=== PATIENT | female | born 1970 ===

== ENCOUNTER 2016-07-05 14:25 | Inpatient (IN) | payer OTHER ==
[2016-07-05 16:25] VITALS: BMI 25.7
[2016-07-05] MEDS ORDERED: MAGNESIUM HYDROX 2400MG/30ML ORAL SUSPENSION 30 ML CUP PO PRN (18:25)
[2016-07-05] MEDS ORDERED: MENTHOL/PHENOL 1 EACH UD MM PRN (18:25)
[2016-07-05] MEDS ORDERED: NICOTINE POLACRILEX 2 MG GUM BUC PRN (18:25)
[2016-07-05] MEDS ORDERED: ACETAMINOPHEN 325 MG TABLET (FP) PO PRN (18:25)
[2016-07-05] MEDS ORDERED: LOPERAMIDE HCL 2 MG CAPSULE PO PRN (18:25)
[2016-07-05] MEDS ORDERED: P-EPHED 60MG/TRIPROLIDI 2.5MG TABLET PO PRN (18:25)
[2016-07-05] MEDS ORDERED: guaiFENesin/D-METHORPHAN HB 10 ML UNIT-DOSE CUPS PO PRN (18:25)
[2016-07-05] MEDS ORDERED: MAGNESIUM CITRATE 300 ML BOTTLE PO PRN (18:25)
[2016-07-05] MEDS ORDERED: MAG HYDROX/AL HYDROX/SIMETH 30 ML UNIT-DOSE CUP PO PRN (18:25)
--- NOTE | 2016-07-05 18:25 | HP ---
Admission ROS S - [facility] Chief Complaint: I WANT TO GO TO REHAB Allergies/Adverse Reactions: Allergies Allergy/AdvReac Type Severity Reaction Status Date / Time No Known Allergies Allergy Verified 07/05/16 18:21 History of Present Illness: 45 YEARS OLD FEMALE WITH LONG HISTORY OF OPIATE NICOTINE DEPENDENCE DENIES MEDICAL ISSUE DENIES MENTAL ILLNESS IS ADMITTED TO REHAB Exam Limitations: No Limitations - Ebola screening Have you traveled outside of the country in the last 21 days: No Have you had contact with anyone from an Ebola affected area: No Have you been sick,other than usual withdrawal symptoms: No Do you have a fever: No - Review of Systems Constitutional: Weight Stable EENT: reports: Other (NEEDED EYE GLASSES) Respiratory: reports: No Symptoms reported Cardiac: reports: No Symptoms Reported GI: reports: No Symptoms Reported : reports: No Symptoms Reported Musculoskeletal: reports: No Symptoms Reported Integumentary: reports: No Symptoms Reported Neuro: reports: No Symptoms reported Endocrine: reports: No Symptoms Reported Hematology: reports: No Symptoms Reported Psychiatric: reports: No Sypmtoms Reported, Judgement Intact, Mood/Affect Appropiate, Orientated x3 Other Systems: Reviewed and Negative Patient History - Patient Medical History Hx Anemia: No Hx Asthma: No Hx Chronic Obstructive Pulmonary Disease (COPD): No Hx Cancer: No Hx Cardiac Disorders: No Hx Congestive Heart Failure: No Hx Hypertension: No Hx Hypercholesterolemia: No Hx Pacemaker: No HX Cerebrovascular Accident: No Hx Seizures: No Hx Dementia: No Hx Diabetes: No Hx Gastrointestinal Disorders: No Hx Liver Disease: No Hx Genitourinary Disorders: No Hx Sexually Transmitted Disorders: No Hx Renal Disease (ESRD): No Hx Thyroid Disease: No Hx Human Immunodeficiency Virus (HIV): No Hx Hepatitis C: No Hx Depression: No Hx Suicide Attempt: No Hx Bipolar Disorder: No Hx Schizophrenia: No - Patient Surgical History Past Surgical History: No - PPD History Previous Implant?: Yes Documented Results: Negative w/o proof Implanted On Prior R Admission?: No PPD to be Administered?: Yes - Reproductive History Patient is a Female of Child Bearing Age (11 -55 yrs old): Yes Last Menstrual Period: 06/15/16 Patient : No - Smoking Cessation Smoking history: Current every day smoker Have you smoked in the past 12 months: Yes Aproximately how many cigarettes per day: 20 Cigars Per Day: 0 Hx Chewing Tobacco Use: No Initiated information on smoking cessation: Yes 'Breaking Loose' booklet given: 07/05/16 - Substance & Tx. History Hx Alcohol Use: No Hx Substance Use: Yes Substance Use Type: Heroin Hx Substance Use Treatment: Yes - Substances Abused Heroin Route: Inhalation Frequency: Daily Amount used: 20 BAGS Age of first use: 23 Date of Last Use: 06/29/16 Family Disease History - Family Disease History Family History: Unremarkable Admission Physical Exam [facility] - Vital Signs Vital Signs: Vital Signs - 24 hr 07/05/16 16:22 Temperature 96.5 F L Pulse Rate 91 H Respiratory 20 Rate Blood Pressure 113/69 - Physical General Appearance: Yes: No Apparent Distress, Nourished, Appropriately Dressed HEENTM: Yes: Hearing grossly Normal, Normal ENT Inspection, Normocephalic, Normal Voice Respiratory: Yes: Chest Non-Tender, Lungs Clear, Normal Breath Sounds, No Respiratory Distress, No Accessory Muscle Use Neck: Yes: Supple, Trachea in good position Breast: Yes: Breasts Symetrical Cardiology: Yes: Regular Rhythm, Regular Rate, S1, S2 Abdominal: Yes: Normal Bowel Sounds, Non Tender, Soft Genitourinary: Yes: Within Normal Limits Back: Yes: Normal Inspection Musculoskeletal: Yes: full range of Motion, Gait Steady Extremities: Yes: Normal Inspection, Normal Range of Motion, Non-Tender Neurological: Yes: Fully Oriented, Alert, Motor Strength 5/5, Normal Mood/Affect , Normal Response Integumentary: Yes: Warm Lymphatic: Yes: Within Normal Limits - Diagnostic (1) Opioid dependence with withdrawal Current Visit: Yes Status: Acute (2) Nicotine dependence Current Visit: Yes Status: Acute Qualifiers: Nicotine product type: cigarettes Substance use status: in withdrawal Qualified Code(s): F17.213 - Nicotine dependence, cigarettes, with withdrawal (3) GERD (gastroesophageal reflux disease) Current Visit: Yes Status: Acute Qualifiers: Esophagitis presence: without esophagitis Qualified Code(s): K21.9 - Gastro-esophageal reflux disease without esophagitis Cleared for Admission [facility] - Detox or Rehab [facility] Level of Care: Observation Bed Claeared for Rehab Admission: Yes [facility] Breath Alcohol Content Breath Alcohol Content: 0 Urine Pregancy Test - Result Urine Test Results: Negative- NO Line Present Urine Drug Screen - Results Drug Screen Negative: Yes
[2016-07-05] MEDS ORDERED: CYCLOBENZAPRINE HCL 10 MG TABLET (FP) PO PRN (18:28)
[2016-07-05] MEDS: THIAMINE HCL 100 MG TABLET (FP) PO SCH (21:33)
[2016-07-05] MEDS: RANITIDINE HCL 150 MG TABLET (FP) PO SCH (21:33)
[2016-07-05] MEDS: diphenhydrAMINE HCL 50 MG CAPSULE PO PRN (21:34)
[2016-07-05 23:00] LABS: URINE APPEARANCE CLEAR; URINE BILIRUBIN NEGATIVE (NEGATIVE); URINE BLOOD NEGATIVE (NEGATIVE); URINE COLOR LTYELLOW; URINE GLUCOSE (UA) NEGATIVE (NEGATIVE); URINE KETONE NEGATIVE (NEGATIVE); URINE NITRITE NEGATIVE (NEGATIVE); URINE PROTEIN NEGATIVE (NEGATIVE); URINE UROBILINOGEN NEGATIVE E.U./dl (0.2-1.0)
[2016-07-05 23:03] LABS: URINE LEUK ESTERASE TRACE (NEGATIVE)
[2016-07-05 23:08] LABS: URINE RBC 2 /hpf (0-3); URINE WBC 4 /hpf (3-5)
--- NOTE | 2016-07-06 10:09 | HP ---
Psychiatrist Admission - Data Date of interview: 07/06/16 Admission source: [facility] Identifying data: The patient is 45 yo AA single mother of 5 (27,25,24,21), resides with her daughter and supported by her daughter. Medical History: Significant for GERD. Psychiatric History: Patient denies psychiatric history.She reports mood instability,sleeping difficulties on and offmmedicated herself with drugs .Patient was on Seroquel 200 mg po hs while she was in ER for fever and then transferred to psychiatric unit for 2 days due to inappropriate behavior.No psychiatric follow up.Patient is not on any medications. Physical/Sexual Abuse/Trauma History: denies Vital Signs: Vital Signs - 24 hr 07/05/16 07/05/16 07/06/16 16:22 20:35 00:30 Temperature 96.5 F L 98 F Pulse Rate 91 H 106 H Respiratory 20 16 16 Rate Blood Pressure 113/69 135/82 07/06/16 07/06/16 03:30 07:19 Temperature 98.5 F Pulse Rate 64 Respiratory 18 18 Rate Blood Pressure 117/72 Allergies/Adverse Reactions: Allergies Allergy/AdvReac Type Severity Reaction Status Date / Time No Known Allergies Allergy Verified 07/05/16 18:21 Date of last physical exam: 07/05/16 Concur with the findings of this exam: Yes - Substance Abuse/Tx History Hx Alcohol Use: No Hx Substance Use: Yes (reports heroin since 23 yo,20 bags daily,crack since 24 yo) Substance Use Type: Heroin, Marijuana Hx Substance Use Treatment: Yes (this is the first inpatient rehab treatment ) - Admission Criteria Previous failed treatment: Yes Poor recovery environment: Yes Comorbidities: Yes Lacks judgement: Yes Mental Status Exam - Mental Status Exam Alert and Oriented to: Time, Place, Person Cognitive Function: Grossly Intact Patient Appearance: Well Groomed Mood: Angry, Sad, Anxious Affect: Mood Congruent Patient Behavior: Cooperative Speech Pattern: Clear Voice Loudness: Normal Thought Process: Goal Oriented Thought Disorder: Being Controlled Hallucinations: Denies Suicidal Ideation: Denies Homicidal Ideation: Denies Insight/Judgement: Fair Sleep: Difficulty falling asleep Appetite: Fair Muscle strength/Tone: Normal Gait/Station: Normal Psychiatric Findings - Problem List ([place] 1, 2,3) (1) GERD (gastroesophageal reflux disease) Current Visit: Yes Status: Acute Qualifiers: Esophagitis presence: without esophagitis Qualified Code(s): K21.9 - Gastro-esophageal reflux disease without esophagitis (2) Nicotine dependence Current Visit: Yes Status: Acute Qualifiers: Nicotine product type: cigarettes Substance use status: in withdrawal Qualified Code(s): F17.213 - Nicotine dependence, cigarettes, with withdrawal (3) Opioid dependence with withdrawal Current Visit: Yes Status: Chronic (4) Substance induced mood disorder Current Visit: Yes Status: Chronic - Initial Treatment Plan Initial Treatment Plan: Zoloft 25 mg po daily and Remeron 15 mg po hs.Consider Seroquel if needed.Will monitor progress.
[2016-07-06 10:14] LABS: ALBUMIN 3.1 g/dl (3.4-5.0); CALCIUM 9.4 mg/dL (8.5-10.1)
[2016-07-06 10:18] LABS: BILIRUBIN,TOTAL 0.2 mg/dL (0.2-1.0); CREATININE 1.7 mg/dL (0.55-1.02); TOT PROT 7.6 g/dl (6.4-8.2)
[2016-07-06 10:23] LABS: MCH 23.5 pg (25.7-33.7); MCHC 31.1 g/dl (32.0-36.0); MEAN CELL VOLUME 75.7 fl (80-96); MEAN PLT VOLUME 8.8 fl (7.5-11.1); PLATELET COUNT 632 K/MM3 (134-434); RDW 16.3 % (11.6-15.6); WHITE BLOOD COUNT 10.3 K/mm3 (4.0-10.0)
[2016-07-06] MEDS: RANITIDINE HCL 150 MG TABLET (FP) PO SCH ×2 (10:33→21:30)
[2016-07-06] MEDS: NICOTINE 21 MG/24 HOURS TOPICAL PATCH TD SCH (10:33)
[2016-07-06] MEDS: PRENATAL VITAMINS W/ FOLIC ACID TABLET (FP) PO SCH (10:33)
[2016-07-06] MEDS: cloNIDine HCL 0.1 MG TABLET PO PRN ×2 (11:03→21:30)
[2016-07-06] MEDS: SERTRALINE HCL 50 MG TABLET (FP) PO SCH (11:03)
[2016-07-06 11:54] LABS: HIV 1 & 2 AB NEGATIVE; HIV 1 AGp24 NEGATIVE
--- NOTE | 2016-07-06 13:35 | EKG ---
Test Reason : Blood Pressure : / mmHG Vent. Rate : 085 BPM Atrial Rate : 085 BPM P-R Int : 156 ms QRS Dur : 080 ms QT Int : 390 ms P-R-T Axes : 076 051 065 degrees QTc Int : 464 ms NORMAL SINUS RHYTHM NORMAL ECG NO PREVIOUS ECGS AVAILABLE Confirmed by MALENA TAVARES MD ([id number]) on 07/06/2016 1:35:08 PM Referred By: Evangelina Salvador Confirmed By:MALENA TAVARES MD
[2016-07-06] MEDS: THIAMINE HCL 100 MG TABLET (FP) PO SCH (21:30)
[2016-07-06] MEDS: MIRTAZAPINE 15 MG TABLET (FP) PO SCH (21:40)
[2016-07-07] MEDS: NICOTINE 21 MG/24 HOURS TOPICAL PATCH TD SCH (10:09)
[2016-07-07] MEDS: SERTRALINE HCL 50 MG TABLET (FP) PO SCH (10:10)
[2016-07-07] MEDS: PRENATAL VITAMINS W/ FOLIC ACID TABLET (FP) PO SCH (10:10)
[2016-07-07] MEDS: RANITIDINE HCL 150 MG TABLET (FP) PO SCH ×2 (10:10→21:39)
[2016-07-07] MEDS: cloNIDine HCL 0.1 MG TABLET PO PRN ×2 (10:11→18:54)
[2016-07-07] MEDS ORDERED: PT OWN MED DRAWER 7, Y5N ONE ×2 (10:29→18:53)
[2016-07-07] MEDS: MIRTAZAPINE 15 MG TABLET (FP) PO SCH (21:39)
[2016-07-07] MEDS: THIAMINE HCL 100 MG TABLET (FP) PO SCH (21:39)
--- NOTE | 2016-07-08 00:51 | PN ---
[facility] Progress Note Note: CALLED BY NURSE CONCERNING LABS Laboratory Last Values WBC 10.3 K/mm3 (4.0-10.0) H 07/06/16 07:00 RBC 4.56 M/mm3 (3.60-5.2) 07/06/16 07:00 Hgb 10.7 GM/dL (10.7-15.3) 07/06/16 07:00 Hct 34.5 % (32.4-45.2) 07/06/16 07:00 MCV 75.7 fl (80-96) L 07/06/16 07:00 MCHC 31.1 g/dl (32.0-36.0) L 07/06/16 07:00 RDW 16.3 % (11.6-15.6) H 07/06/16 07:00 Plt Count 632 K/MM3 (134-434) H 07/06/16 07:00 MPV 8.8 fl (7.5-11.1) 07/06/16 07:00 Sodium 137 mmol/L (136-145) 07/06/16 07:00 Potassium 5.4 mmol/L (3.5-5.1) H 07/06/16 07:00 Chloride 104 mmol/L (98-107) 07/06/16 07:00 Carbon Dioxide 24 mmol/L (21-32) 07/06/16 07:00 Anion Gap 9 (8-16) 07/06/16 07:00 BUN 31 mg/dL (7-18) H 07/06/16 07:00 Creatinine 1.7 mg/dL (0.55-1.02) H 07/06/16 07:00 Creat Clearance w eGFR 32.80 (>60) 07/06/16 07:00 Random Glucose 108 mg/dL (74-106) H 07/06/16 07:00 Calcium 9.4 mg/dL (8.5-10.1) 07/06/16 07:00 Total Bilirubin 0.2 mg/dL (0.2-1.0) 07/06/16 07:00 AST 18 U/L (15-37) 07/06/16 07:00 ALT 30 U/L (12-78) 07/06/16 07:00 Alkaline Phosphatase 97 U/L (45-117) 07/06/16 07:00 Total Protein 7.6 g/dl (6.4-8.2) 07/06/16 07:00 Albumin 3.1 g/dl (3.4-5.0) L 07/06/16 07:00 Urine Color Ltyellow 07/05/16 22:05 Urine Appearance Clear 07/05/16 22:05 Urine pH 7.0 (5.0-8.0) 07/05/16 22:05 Ur Specific [place] 1.012 (1.001-1.035) 07/05/16 22:05 Urine Protein Negative (NEGATIVE) 07/05/16 22:05 Urine Glucose (UA) Negative (NEGATIVE) 07/05/16 22:05 Urine Ketones Negative (NEGATIVE) 07/05/16 22:05 Urine Blood Negative (NEGATIVE) 07/05/16 22:05 Urine Nitrite Negative (NEGATIVE) 07/05/16 22:05 Urine Bilirubin Negative (NEGATIVE) 07/05/16 22:05 Urine Urobilinogen Negative E.U./dl (0.2-1.0) 07/05/16 22:05 Ur Leukocyte Esterase Trace (NEGATIVE) H 07/05/16 22:05 Urine RBC 2 /hpf (0-3) 07/05/16 22:05 Urine WBC 4 /hpf (3-5) 07/05/16 22:05 Ur Epithelial Cells Few /hpf (FEW) 07/05/16 22:05 RPR Titer Nonreactive (NONREACTIVE) 07/06/16 07:00 HIV 1&2 Antibody Screen Negative 07/06/16 07:00 HIV P24 Antigen Negative 07/06/16 07:00 ENCOURAGE ORAL FLUID REPEAT CBC,CMP IN AM
[2016-07-08 10:03] LABS: MCH 23.5 pg (25.7-33.7); MCHC 31.2 g/dl (32.0-36.0); MEAN CELL VOLUME 75.4 fl (80-96); MEAN PLT VOLUME 8.7 fl (7.5-11.1); PLATELET COUNT 565 K/MM3 (134-434); RDW 16.3 % (11.6-15.6); WHITE BLOOD COUNT 9.8 K/mm3 (4.0-10.0)
[2016-07-08 10:10] LABS: BILIRUBIN,TOTAL 0.2 mg/dL (0.2-1.0); CALCIUM 9.1 mg/dL (8.5-10.1); CREATININE 1.3 mg/dL (0.55-1.02); TOT PROT 7.4 g/dl (6.4-8.2)
[2016-07-08] MEDS: NICOTINE 21 MG/24 HOURS TOPICAL PATCH TD SCH (10:22)
[2016-07-08] MEDS: RANITIDINE HCL 150 MG TABLET (FP) PO SCH ×2 (10:23→21:45)
[2016-07-08] MEDS: SERTRALINE HCL 50 MG TABLET (FP) PO SCH (10:23)
[2016-07-08] MEDS: PRENATAL VITAMINS W/ FOLIC ACID TABLET (FP) PO SCH (10:23)
--- NOTE | 2016-07-08 15:09 | PN ---
[facility] Progress Note Note: Labs were repeated and are now grossly normal Laboratory Results - last 24 hr 07/08/16 07/08/16 07:16 07:16 WBC 9.8 RBC 4.47 Hgb 10.5 L Hct 33.7 MCV 75.4 L MCHC 31.2 L RDW 16.3 H Plt Count 565 H MPV 8.7 Sodium 140 Potassium 4.9 Chloride 105 Carbon Dioxide 28 Anion Gap 7 L BUN 28 H Creatinine 1.3 H D Creat Clearance w eGFR 44.70 Random Glucose 84 D Calcium 9.1 Total Bilirubin 0.2 AST 12 L D ALT 21 D Alkaline Phosphatase 81 Total Protein 7.4 Albumin 3.0 L pt. was on feosol for anemia
[2016-07-08] MEDS: FERROUS SO4 325 MG TABLET (FP) PO SCH (17:25)
[2016-07-08] MEDS: MIRTAZAPINE 15 MG TABLET (FP) PO SCH (21:27)
[2016-07-08] MEDS: diphenhydrAMINE HCL 50 MG CAPSULE PO PRN (21:27)
[2016-07-08] MEDS: THIAMINE HCL 100 MG TABLET (FP) PO SCH (21:27)
[2016-07-09] MEDS: FERROUS SO4 325 MG TABLET (FP) PO SCH ×2 (07:26→17:27)
[2016-07-09] MEDS: SERTRALINE HCL 50 MG TABLET (FP) PO SCH (09:45)
[2016-07-09] MEDS: PRENATAL VITAMINS W/ FOLIC ACID TABLET (FP) PO SCH (09:45)
[2016-07-09] MEDS: NICOTINE 21 MG/24 HOURS TOPICAL PATCH TD SCH (09:46)
[2016-07-09] MEDS: RANITIDINE HCL 150 MG TABLET (FP) PO SCH (21:35)
[2016-07-09] MEDS: MIRTAZAPINE 15 MG TABLET (FP) PO SCH (21:35)
[2016-07-09] MEDS: THIAMINE HCL 100 MG TABLET (FP) PO SCH (21:36)
[2016-07-09] MEDS: diphenhydrAMINE HCL 50 MG CAPSULE PO PRN (21:36)
[2016-07-10] MEDS: FERROUS SO4 325 MG TABLET (FP) PO SCH ×2 (07:48→17:36)
[2016-07-10] MEDS: IBUPROFEN 400 MG TABLET (FP) PO PRN (08:39)
[2016-07-10] MEDS: SERTRALINE HCL 50 MG TABLET (FP) PO SCH (09:24)
[2016-07-10] MEDS: PRENATAL VITAMINS W/ FOLIC ACID TABLET (FP) PO SCH (09:24)
[2016-07-10] MEDS: NICOTINE 21 MG/24 HOURS TOPICAL PATCH TD SCH (09:25)
[2016-07-10] MEDS: THIAMINE HCL 100 MG TABLET (FP) PO SCH (21:18)
[2016-07-10] MEDS: MIRTAZAPINE 15 MG TABLET (FP) PO SCH (21:18)
[2016-07-10] MEDS: diphenhydrAMINE HCL 50 MG CAPSULE PO PRN (21:18)
[2016-07-10] MEDS: RANITIDINE HCL 150 MG TABLET (FP) PO SCH (21:18)
[2016-07-11] MEDS: FERROUS SO4 325 MG TABLET (FP) PO SCH ×2 (07:34→17:25)
[2016-07-11] MEDS: PRENATAL VITAMINS W/ FOLIC ACID TABLET (FP) PO SCH (10:15)
[2016-07-11] MEDS: SERTRALINE HCL 50 MG TABLET (FP) PO SCH (10:15)
[2016-07-11] MEDS: NICOTINE 21 MG/24 HOURS TOPICAL PATCH TD SCH (10:16)
[2016-07-11] MEDS: MIRTAZAPINE 15 MG TABLET (FP) PO SCH (21:35)
[2016-07-11] MEDS: THIAMINE HCL 100 MG TABLET (FP) PO SCH (21:35)
[2016-07-11] MEDS: RANITIDINE HCL 150 MG TABLET (FP) PO SCH (21:36)
[2016-07-11] MEDS: diphenhydrAMINE HCL 50 MG CAPSULE PO PRN (21:36)
[2016-07-12] MEDS: FERROUS SO4 325 MG TABLET (FP) PO SCH ×2 (07:09→18:43)
[2016-07-12] MEDS: SERTRALINE HCL 50 MG TABLET (FP) PO SCH (10:05)
[2016-07-12] MEDS: PRENATAL VITAMINS W/ FOLIC ACID TABLET (FP) PO SCH (10:05)
[2016-07-12] MEDS: NICOTINE 21 MG/24 HOURS TOPICAL PATCH TD SCH (10:06)
[2016-07-12] MEDS: MIRTAZAPINE 15 MG TABLET (FP) PO SCH (21:33)
[2016-07-12] MEDS: THIAMINE HCL 100 MG TABLET (FP) PO SCH (21:33)
[2016-07-12] MEDS: RANITIDINE HCL 150 MG TABLET (FP) PO SCH (21:33)
[2016-07-12] MEDS: diphenhydrAMINE HCL 50 MG CAPSULE PO PRN (21:33)
[2016-07-13] MEDS: FERROUS SO4 325 MG TABLET (FP) PO SCH ×2 (07:12→17:25)
[2016-07-13] MEDS: SERTRALINE HCL 50 MG TABLET (FP) PO SCH (10:01)
[2016-07-13] MEDS: NICOTINE 21 MG/24 HOURS TOPICAL PATCH TD SCH (10:01)
[2016-07-13] MEDS: PRENATAL VITAMINS W/ FOLIC ACID TABLET (FP) PO SCH (10:01)
[2016-07-13] MEDS: diphenhydrAMINE HCL 50 MG CAPSULE PO PRN (21:26)
[2016-07-13] MEDS: THIAMINE HCL 100 MG TABLET (FP) PO SCH (21:26)
[2016-07-13] MEDS: RANITIDINE HCL 150 MG TABLET (FP) PO SCH (21:26)
[2016-07-13] MEDS: MIRTAZAPINE 15 MG TABLET (FP) PO SCH (21:26)
[2016-07-14] MEDS: FERROUS SO4 325 MG TABLET (FP) PO SCH ×2 (07:41→17:32)
[2016-07-14] MEDS: PRENATAL VITAMINS W/ FOLIC ACID TABLET (FP) PO SCH (10:18)
[2016-07-14] MEDS: NICOTINE 21 MG/24 HOURS TOPICAL PATCH TD SCH (10:18)
[2016-07-14] MEDS: SERTRALINE HCL 50 MG TABLET (FP) PO SCH (10:18)
[2016-07-14] MEDS: diphenhydrAMINE HCL 50 MG CAPSULE PO PRN (21:24)
[2016-07-14] MEDS: RANITIDINE HCL 150 MG TABLET (FP) PO SCH (21:24)
[2016-07-14] MEDS: THIAMINE HCL 100 MG TABLET (FP) PO SCH (21:24)
[2016-07-14] MEDS: MIRTAZAPINE 15 MG TABLET (FP) PO SCH (21:24)
[2016-07-15] MEDS: FERROUS SO4 325 MG TABLET (FP) PO SCH ×2 (07:31→18:45)
[2016-07-15] MEDS: SERTRALINE HCL 50 MG TABLET (FP) PO SCH (11:03)
[2016-07-15] MEDS: PRENATAL VITAMINS W/ FOLIC ACID TABLET (FP) PO SCH (11:03)
[2016-07-15] MEDS: NICOTINE 21 MG/24 HOURS TOPICAL PATCH TD SCH (11:03)
[2016-07-15] MEDS ORDERED: PT OWN MED DRAWER 7, Y5N ONE (19:45)
[2016-07-15] MEDS: RANITIDINE HCL 150 MG TABLET (FP) PO SCH (21:37)
[2016-07-15] MEDS: diphenhydrAMINE HCL 50 MG CAPSULE PO PRN (21:37)
[2016-07-15] MEDS: QUEtiapine FUMARATE 100 MG TABLET (FP) PO SCH (21:37)
[2016-07-15] MEDS: THIAMINE HCL 100 MG TABLET (FP) PO SCH (21:37)
[2016-07-16] MEDS: FERROUS SO4 325 MG TABLET (FP) PO SCH ×2 (07:45→18:17)
[2016-07-16] MEDS: NICOTINE 21 MG/24 HOURS TOPICAL PATCH TD SCH (10:43)
[2016-07-16] MEDS: PRENATAL VITAMINS W/ FOLIC ACID TABLET (FP) PO SCH (10:44)
[2016-07-16] MEDS: diphenhydrAMINE HCL 50 MG CAPSULE PO PRN (21:37)
[2016-07-16] MEDS: THIAMINE HCL 100 MG TABLET (FP) PO SCH (21:37)
[2016-07-16] MEDS: RANITIDINE HCL 150 MG TABLET (FP) PO SCH (21:37)
[2016-07-16] MEDS: QUEtiapine FUMARATE 100 MG TABLET (FP) PO SCH (21:37)
[2016-07-17] MEDS: FERROUS SO4 325 MG TABLET (FP) PO SCH ×2 (06:59→17:35)
[2016-07-17] MEDS: PRENATAL VITAMINS W/ FOLIC ACID TABLET (FP) PO SCH (10:41)
[2016-07-17] MEDS: NICOTINE 21 MG/24 HOURS TOPICAL PATCH TD SCH (10:41)
[2016-07-17] MEDS: RANITIDINE HCL 150 MG TABLET (FP) PO SCH (21:32)
[2016-07-17] MEDS: THIAMINE HCL 100 MG TABLET (FP) PO SCH (21:32)
[2016-07-17] MEDS: QUEtiapine FUMARATE 100 MG TABLET (FP) PO SCH (21:32)
[2016-07-17] MEDS: diphenhydrAMINE HCL 50 MG CAPSULE PO PRN (21:33)
[2016-07-18] MEDS: FERROUS SO4 325 MG TABLET (FP) PO SCH ×2 (07:04→17:10)
[2016-07-18] MEDS: NICOTINE 21 MG/24 HOURS TOPICAL PATCH TD SCH (09:56)
[2016-07-18] MEDS: PRENATAL VITAMINS W/ FOLIC ACID TABLET (FP) PO SCH (09:57)
[2016-07-18] MEDS: RANITIDINE HCL 150 MG TABLET (FP) PO SCH (21:31)
[2016-07-18] MEDS: QUEtiapine FUMARATE 100 MG TABLET (FP) PO SCH (21:31)
[2016-07-18] MEDS: THIAMINE HCL 100 MG TABLET (FP) PO SCH (21:31)
[2016-07-18] MEDS: diphenhydrAMINE HCL 50 MG CAPSULE PO PRN (21:31)
[2016-07-19] MEDS: FERROUS SO4 325 MG TABLET (FP) PO SCH ×2 (07:24→17:57)
[2016-07-19] MEDS: PRENATAL VITAMINS W/ FOLIC ACID TABLET (FP) PO SCH (10:05)
[2016-07-19] MEDS: NICOTINE 21 MG/24 HOURS TOPICAL PATCH TD SCH (10:06)
[2016-07-19] MEDS: QUEtiapine FUMARATE 100 MG TABLET (FP) PO SCH (21:38)
[2016-07-19] MEDS: THIAMINE HCL 100 MG TABLET (FP) PO SCH (21:38)
[2016-07-19] MEDS: RANITIDINE HCL 150 MG TABLET (FP) PO SCH (21:38)
[2016-07-19] MEDS: hydrOXYzine PAMOATE 50 MG CAPSULE (FP) PO PRN (21:39)
[2016-07-20] MEDS: FERROUS SO4 325 MG TABLET (FP) PO SCH ×2 (07:29→17:35)
[2016-07-20] MEDS: NICOTINE 21 MG/24 HOURS TOPICAL PATCH TD SCH (10:13)
[2016-07-20] MEDS: PRENATAL VITAMINS W/ FOLIC ACID TABLET (FP) PO SCH (10:13)
[2016-07-20] MEDS: THIAMINE HCL 100 MG TABLET (FP) PO SCH (21:34)
[2016-07-20] MEDS: RANITIDINE HCL 150 MG TABLET (FP) PO SCH (21:34)
[2016-07-20] MEDS: hydrOXYzine PAMOATE 50 MG CAPSULE (FP) PO PRN (21:35)
[2016-07-20] MEDS: traZODone HCL 100 MG TABLET (FP) PO SCH (21:36)
[2016-07-21] MEDS: FERROUS SO4 325 MG TABLET (FP) PO SCH ×2 (07:52→17:30)
[2016-07-21] MEDS: NICOTINE 21 MG/24 HOURS TOPICAL PATCH TD SCH (10:20)
[2016-07-21] MEDS: PRENATAL VITAMINS W/ FOLIC ACID TABLET (FP) PO SCH (10:21)
[2016-07-21] MEDS: RANITIDINE HCL 150 MG TABLET (FP) PO SCH (21:33)
[2016-07-21] MEDS: hydrOXYzine PAMOATE 50 MG CAPSULE (FP) PO PRN (21:33)
[2016-07-21] MEDS: THIAMINE HCL 100 MG TABLET (FP) PO SCH (21:34)
[2016-07-21] MEDS: traZODone HCL 100 MG TABLET (FP) PO SCH (21:34)
[2016-07-22] MEDS: FERROUS SO4 325 MG TABLET (FP) PO SCH ×2 (07:51→17:25)
[2016-07-22] MEDS: PRENATAL VITAMINS W/ FOLIC ACID TABLET (FP) PO SCH (09:57)
[2016-07-22] MEDS: NICOTINE 21 MG/24 HOURS TOPICAL PATCH TD SCH (09:57)
[2016-07-22] MEDS: RANITIDINE HCL 150 MG TABLET (FP) PO SCH (21:40)
[2016-07-22] MEDS: THIAMINE HCL 100 MG TABLET (FP) PO SCH (21:40)
[2016-07-22] MEDS: hydrOXYzine PAMOATE 50 MG CAPSULE (FP) PO PRN (21:40)
[2016-07-22] MEDS: traZODone HCL 100 MG TABLET (FP) PO SCH (21:41)
[2016-07-23] MEDS: FERROUS SO4 325 MG TABLET (FP) PO SCH ×2 (07:18→17:38)
[2016-07-23] MEDS: NICOTINE 21 MG/24 HOURS TOPICAL PATCH TD SCH (10:11)
[2016-07-23] MEDS: PRENATAL VITAMINS W/ FOLIC ACID TABLET (FP) PO SCH (10:11)
[2016-07-23] MEDS: RANITIDINE HCL 150 MG TABLET (FP) PO SCH (21:30)
[2016-07-23] MEDS: THIAMINE HCL 100 MG TABLET (FP) PO SCH (21:30)
[2016-07-23] MEDS: traZODone HCL 100 MG TABLET (FP) PO SCH (21:30)
[2016-07-23] MEDS: hydrOXYzine PAMOATE 50 MG CAPSULE (FP) PO PRN (21:31)
[2016-07-24] MEDS: FERROUS SO4 325 MG TABLET (FP) PO SCH ×2 (08:26→17:02)
[2016-07-24] MEDS: NICOTINE 21 MG/24 HOURS TOPICAL PATCH TD SCH (09:52)
[2016-07-24] MEDS: PRENATAL VITAMINS W/ FOLIC ACID TABLET (FP) PO SCH (09:53)
[2016-07-24] MEDS: THIAMINE HCL 100 MG TABLET (FP) PO SCH (21:25)
[2016-07-24] MEDS: hydrOXYzine PAMOATE 50 MG CAPSULE (FP) PO PRN (21:25)
[2016-07-24] MEDS: traZODone HCL 100 MG TABLET (FP) PO SCH (21:25)
[2016-07-24] MEDS: RANITIDINE HCL 150 MG TABLET (FP) PO SCH (21:25)
[2016-07-25] MEDS: FERROUS SO4 325 MG TABLET (FP) PO SCH ×2 (07:49→18:12)
[2016-07-25] MEDS: PRENATAL VITAMINS W/ FOLIC ACID TABLET (FP) PO SCH (10:21)
[2016-07-25] MEDS: NICOTINE 21 MG/24 HOURS TOPICAL PATCH TD SCH (10:22)
[2016-07-25] MEDS: RANITIDINE HCL 150 MG TABLET (FP) PO SCH (21:47)
[2016-07-25] MEDS: traZODone HCL 100 MG TABLET (FP) PO SCH (21:47)
[2016-07-25] MEDS: THIAMINE HCL 100 MG TABLET (FP) PO SCH (21:47)
[2016-07-25] MEDS: hydrOXYzine PAMOATE 50 MG CAPSULE (FP) PO PRN (21:47)
[2016-07-25] MEDS: IBUPROFEN 400 MG TABLET (FP) PO PRN (21:48)
[2016-07-26] MEDS: FERROUS SO4 325 MG TABLET (FP) PO SCH ×2 (07:38→17:40)
[2016-07-26] MEDS: PRENATAL VITAMINS W/ FOLIC ACID TABLET (FP) PO SCH (10:33)
[2016-07-26] MEDS: NICOTINE 21 MG/24 HOURS TOPICAL PATCH TD SCH (10:33)
[2016-07-26] MEDS: IBUPROFEN 400 MG TABLET (FP) PO PRN (15:43)
[2016-07-26] MEDS: traZODone HCL 100 MG TABLET (FP) PO SCH (21:38)
[2016-07-26] MEDS: THIAMINE HCL 100 MG TABLET (FP) PO SCH (21:38)
[2016-07-26] MEDS: RANITIDINE HCL 150 MG TABLET (FP) PO SCH (21:38)
[2016-07-26] MEDS: hydrOXYzine PAMOATE 50 MG CAPSULE (FP) PO PRN (21:38)
[2016-07-27] MEDS: FERROUS SO4 325 MG TABLET (FP) PO SCH ×2 (07:42→17:05)
[2016-07-27] MEDS: PRENATAL VITAMINS W/ FOLIC ACID TABLET (FP) PO SCH (10:35)
[2016-07-27] MEDS: NICOTINE 21 MG/24 HOURS TOPICAL PATCH TD SCH (10:35)
[2016-07-27] MEDS: hydrOXYzine PAMOATE 50 MG CAPSULE (FP) PO PRN (21:36)
[2016-07-27] MEDS: RANITIDINE HCL 150 MG TABLET (FP) PO SCH (21:36)
[2016-07-27] MEDS: THIAMINE HCL 100 MG TABLET (FP) PO SCH (21:36)
[2016-07-27] MEDS: traZODone HCL 100 MG TABLET (FP) PO SCH (21:36)
[2016-07-28] MEDS ORDERED: CYCLOBENZAPRINE HCL 10 MG TABLET (FP) PO PRN (05:57)
[2016-07-28] MEDS: FERROUS SO4 325 MG TABLET (FP) PO SCH ×2 (07:19→17:35)
[2016-07-28] MEDS: NICOTINE 21 MG/24 HOURS TOPICAL PATCH TD SCH (10:49)
[2016-07-28] MEDS: PRENATAL VITAMINS W/ FOLIC ACID TABLET (FP) PO SCH (10:49)
[2016-07-28] MEDS: IBUPROFEN 400 MG TABLET (FP) PO PRN (10:58)
[2016-07-28] MEDS: IBUPROFEN 600 MG TABLET (FP) PO PRN (17:36)
[2016-07-28] MEDS: hydrOXYzine PAMOATE 50 MG CAPSULE (FP) PO PRN (21:24)
[2016-07-28] MEDS: RANITIDINE HCL 150 MG TABLET (FP) PO SCH (21:24)
[2016-07-28] MEDS: traZODone HCL 100 MG TABLET (FP) PO SCH (21:24)
[2016-07-28] MEDS: THIAMINE HCL 100 MG TABLET (FP) PO SCH (21:24)
[2016-07-29] MEDS: IBUPROFEN 600 MG TABLET (FP) PO PRN ×2 (06:27→17:51)
[2016-07-29] MEDS: FERROUS SO4 325 MG TABLET (FP) PO SCH ×2 (07:44→17:50)
[2016-07-29] MEDS: PRENATAL VITAMINS W/ FOLIC ACID TABLET (FP) PO SCH (10:18)
[2016-07-29] MEDS: NICOTINE 21 MG/24 HOURS TOPICAL PATCH TD SCH (10:18)
[2016-07-29] MEDS: THIAMINE HCL 100 MG TABLET (FP) PO SCH (21:29)
[2016-07-29] MEDS: RANITIDINE HCL 150 MG TABLET (FP) PO SCH (21:29)
[2016-07-29] MEDS: hydrOXYzine PAMOATE 50 MG CAPSULE (FP) PO PRN (21:29)
[2016-07-29] MEDS: traZODone HCL 100 MG TABLET (FP) PO SCH (21:29)
[2016-07-30] MEDS: FERROUS SO4 325 MG TABLET (FP) PO SCH ×2 (07:08→17:12)
[2016-07-30] MEDS: PRENATAL VITAMINS W/ FOLIC ACID TABLET (FP) PO SCH (10:18)
[2016-07-30] MEDS: NICOTINE 21 MG/24 HOURS TOPICAL PATCH TD SCH (10:19)
[2016-07-30] MEDS: traZODone HCL 100 MG TABLET (FP) PO SCH (21:44)
[2016-07-30] MEDS: THIAMINE HCL 100 MG TABLET (FP) PO SCH (21:44)
[2016-07-30] MEDS: RANITIDINE HCL 150 MG TABLET (FP) PO SCH (21:44)
[2016-07-30] MEDS: hydrOXYzine PAMOATE 50 MG CAPSULE (FP) PO PRN (21:45)
[2016-07-31] MEDS: FERROUS SO4 325 MG TABLET (FP) PO SCH ×2 (07:02→18:24)
[2016-07-31] MEDS: PRENATAL VITAMINS W/ FOLIC ACID TABLET (FP) PO SCH (10:20)
[2016-07-31] MEDS: NICOTINE 21 MG/24 HOURS TOPICAL PATCH TD SCH (10:21)
[2016-07-31] MEDS: traZODone HCL 100 MG TABLET (FP) PO SCH (21:28)
[2016-07-31] MEDS: RANITIDINE HCL 150 MG TABLET (FP) PO SCH (21:28)
[2016-07-31] MEDS: THIAMINE HCL 100 MG TABLET (FP) PO SCH (21:29)
[2016-07-31] MEDS: hydrOXYzine PAMOATE 50 MG CAPSULE (FP) PO PRN (21:30)
[2016-08-01] MEDS: FERROUS SO4 325 MG TABLET (FP) PO SCH ×2 (07:31→17:38)
[2016-08-01] MEDS: NICOTINE 21 MG/24 HOURS TOPICAL PATCH TD SCH (10:31)
[2016-08-01] MEDS: PRENATAL VITAMINS W/ FOLIC ACID TABLET (FP) PO SCH (10:31)
--- NOTE | 2016-08-01 11:41 | PN ---
[id number] 73 16- 117/72 Date of Session: 08/01/16 Chief Complaint:: Discharge visit HPI: Patient addressed Opioid dependence comorbid with Substance induced mood disorder. ROS: unremarkable Current Medications: Active Medications Generic Name Dose Route Start Last Admin Trade Name Freq PRN Reason Stop Dose Admin Acetaminophen 650 mg 07/05/16 18:25 Tylenol - PO Q4H PRN PAIN Al Hydroxide/Mg Hydroxide 30 ml 07/05/16 18:25 Mylanta Oral Suspension - PO Q6H PRN DYSPEPSIA Cyclobenzaprine HCl 10 mg 07/28/16 05:57 07/28/16 06:13 Flexeril - PO 10 mg TID PRN Administration MUSCLE SPASMS Diphenhydramine HCl 50 mg 07/05/16 22:00 07/18/16 21:31 Benadryl - PO 50 mg HSMR1 PRN Administration INSOMNIA Eucalyptus/Menthol/Phenol/Sorbitol 1 each 07/05/16 18:25 Cepastat Lozenge - MM Q4H PRN SORE THROAT Ferrous Sulfate 325 mg 07/08/16 17:30 08/01/16 07:31 Feosol - PO 325 mg BIDWM JOSEPH Administration Guaifenesin 10 ml 07/05/16 18:25 Robitussin Dm - PO Q6H PRN COUGH Hydroxyzine Pamoate 50 mg 07/05/16 18:25 07/31/16 21:30 Vistaril - PO 50 mg Q4H PRN Administration AGITATION Ibuprofen 600 mg 07/28/16 14:53 07/29/16 17:51 Motrin - PO 600 mg Q6H PRN Administration SEVERE PAIN Loperamide HCl 4 mg 07/05/16 18:25 Imodium - PO Q6H PRN DIARRHEA Magnesium Citrate 300 ml 07/05/16 18:25 Citroma - PO Q48H PRN CONSTIPATION Magnesium Hydroxide 30 ml 07/05/16 18:25 Milk Of Magnesia - PO DAILY PRN CONSTIPATION Nicotine 21 mg 07/06/16 10:00 08/01/16 10:31 Nicoderm Patch - TD Not Given DAILY JOSEPH Nicotine Polacrilex 2 mg 07/05/16 18:25 Nicorette Gum - BUC Q2H PRN NICOTINE REPLACEMENT RX Multivit/Folic Acid/Iron 1 tab 07/06/16 10:00 08/01/16 10:31 Vitamins (Sjr) - PO 1 tab DAILY JOSEPH Administration Pseudoephedrine/Triprolidine 1 combo 07/05/16 18:25 Actifed - PO TID PRN NASAL CONGESTION Ranitidine HCl 150 mg 07/08/16 22:00 07/31/16 21:28 Zantac - PO 150 mg HS JOSEPH Administration Thiamine HCl 100 mg 07/05/16 22:00 07/31/16 21:29 Vitamin B1 - PO 100 mg HS JOSEPH Administration Trazodone HCl 100 mg 07/20/16 22:00 07/31/16 21:28 Desyrel - PO 100 mg HS JOSEPH Administration Current Side Effect: No Lab tests ordered: No Lab tests reviewed: Yes Provider note:: Patient will be discharge tomorrow 08/02/16.She has met her treatment goals and will continue to address her issues on outpatient basis.Patient has met her treatment goals and will continue to address her issues on outpatient basis.Patient will continue Trazodone 100 mg po hs for insomnia.Script for 30 days supply provided. [employer] privided focusing on coping skills,support utilization to maintain recovery. Patient is tsable for discharge tomorrow 08/02/16. Total face to face time:: 30 Mental Status Exam - Mental Status Exam Alert and Oriented to: Time, Place, Person Cognitive Function: Grossly Intact Patient Appearance: Well Groomed Mood: Euthymic Affect: Mood Congruent Patient Behavior: Cooperative Speech Pattern: Clear Voice Loudness: Normal Thought Process: Goal Oriented Thought Disorder: Not Present Hallucinations: Denies Suicidal Ideation: Denies Homicidal Ideation: Denies Insight/Judgement: Fair Sleep: Fair Appetite: Fair Muscle strength/Tone: Normal Gait/Station: Normal Psychiatric Treatment Plan - Problem List (1) GERD (gastroesophageal reflux disease) Qualifiers: Esophagitis presence: without esophagitis Qualified Code(s): K21.9 - Gastro-esophageal reflux disease without esophagitis (2) Nicotine dependence Qualifiers: Nicotine product type: cigarettes Substance use status: in withdrawal Qualified Code(s): F17.213 - Nicotine dependence, cigarettes, with withdrawal
[2016-08-01] MEDS: traZODone HCL 100 MG TABLET (FP) PO SCH (21:20)
[2016-08-01] MEDS: hydrOXYzine PAMOATE 50 MG CAPSULE (FP) PO PRN (21:20)
[2016-08-01] MEDS: THIAMINE HCL 100 MG TABLET (FP) PO SCH (21:20)
[2016-08-01] MEDS: RANITIDINE HCL 150 MG TABLET (FP) PO SCH (21:20)
[2016-08-02 06:47] VITALS: BP 108/71; PULSE 69; TEMP 97.4
[2016-08-02] MEDS: FERROUS SO4 325 MG TABLET (FP) PO SCH (07:10)
[2016-08-02] MEDS: PRENATAL VITAMINS W/ FOLIC ACID TABLET (FP) PO SCH (09:51)
[2016-08-02] MEDS: NICOTINE 21 MG/24 HOURS TOPICAL PATCH TD SCH (09:52)
== END 2016-08-02 09:55 | disposition home or self-care (01) | DRG 772 ==
LOC: YASAS 14:25 → Y3E 18:29
PROVIDERS: ADMIT Psychiatry & Neurology Psychiatry; ATTEND Psychiatry & Neurology Psychiatry
PROC: HZ42ZZZ Group Counseling for Substance Abuse Treatment, Cognitive-Behavioral (ICD-10-PCS; principal; 2016-08-02)
DX: F11.23 Opioid dependence with withdrawal (principal); F17.213 Nicotine dependence, cigarettes, with withdrawal; F19.24 Other psychoactive substance dependence with psychoactive substance-induced mood disorder; K21.9 Gastro-esophageal reflux disease without esophagitis; Z59.0 Homelessness
CPT/HCPCS: 36415; 73630-TC-LT; 80053; 81003; 81015; 85027; 86593; 87389; 93005; 93010